=== PATIENT | female | born 1995 | race American Indian/Alaskan Native ===

== ENCOUNTER 2019-07-09 11:08 | Outpatient (CLI) | payer MEDICAID ==
[2019-07-09 12:14] LABS: Bacteria,Urine 4+ /HPF (Negative); Bilirubin,Urine NEG (Negative); Blood,Urine SM (Negative); Color,Urine Yellow (Yellow); Protein,Urine <15 mg/dL mg/dL (Negative); Urobilinogen,Urine < 2.0 mg/dL (<2.0)
[2019-07-09] MEDS ORDERED: TERBUTALINE 1 MG/1 ML INJ SUB-Q SCH (14:00)
[2019-07-09] MEDS: LACTATED RINGERS 1,000 ML IV SCH ×2 (14:29→14:30)
[2019-07-09] MEDS ORDERED: cefTRIAXone/NS 1 GM/50 ML 1 GM/50 ML BAG IV ONE (15:00)
[2019-07-09 15:55] VITALS: BP 131/86
== END 2019-07-09 16:07 | disposition home or self-care (01) ==
LOC: TRG 11:08
PROVIDERS: ATTEND Obstetrics & Gynecology
DX: O26.893 Other specified pregnancy related conditions, third trimester (principal); R10.9 Unspecified abdominal pain; O60.03 Preterm labor without delivery, third trimester; O16.3 Unspecified maternal hypertension, third trimester; Z3A.34 34 weeks gestation of pregnancy
CPT/HCPCS: 36415; 59025; 81001; 82731; 87086; 96361; 96365; J0696; J7120; 96360

== ENCOUNTER 2019-07-30 08:43 | Inpatient (IN) | payer MEDICAID ==
[2019-07-30 11:19] LABS: Basophils # (Auto) 0.1 K/mm3 (0.0-0.1); Basophils % (Auto) 0.5 % (0.0-1.8); Eosinophils % (Auto) 0.4 % (0.0-4.3); Hematocrit 34.7 % (30.3-42.9); Lymphocytes # (Auto) 1.9 K/mm3 (1.2-5.4); Lymphocytes % (Auto) 15.8 % (13.4-35.0); Mean Corpuscular HGB Conc 32 % (30-34); Mean Corpuscular Volume 74 fl (79-97); Monocytes % (Auto) 8.2 % (0.0-7.3); Platelet Count 344 K/mm3 (140-440); Red Blood Count 4.68 M/mm3 (3.65-5.03); Red Cell Distribution Width 16.4 % (13.2-15.2)
[2019-07-30] MEDS ORDERED: LIDOCAINE (2%) 20 MG/1 ML VIAL 20 ML MDV INFILTRATI NR (12:30)
[2019-07-30] MEDS ORDERED: AMPICILLIN/NS 2 GM/100 ML 2 GM/100 ML BAG IV SCH (12:30)
[2019-07-30] MEDS ORDERED: TERBUTALINE 1 MG/1 ML INJ IVP PRN (12:47)
[2019-07-30] MEDS ORDERED: miSOPROStol 25 MCG TAB ONE (12:50)
[2019-07-30] MEDS ORDERED: LACTATED RINGERS 1,000 ML IV SCH (13:00)
[2019-07-30] MEDS ORDERED: OXYTOCIN 20 UNIT/1000ML DRIP 20 UNITS/1,000 ML BAG IV SCH (13:00)
[2019-07-30] MEDS ORDERED: ePHEDrine SULFATE 50 MG/1 ML INJ IV PRN (13:00)
[2019-07-30] MEDS ORDERED: ONDANSETRON 4 MG/2 ML INJ IV PRN (13:00)
[2019-07-30] MEDS ORDERED: MINERAL OIL 30 ML ORAL LIQD PO PRN (13:00)
[2019-07-30] MEDS ORDERED: BUTORPHANOL 2 MG/1 ML INJ IV PRN (13:00)
[2019-07-30] MEDS ORDERED: fentaNYL 100 MCG/2 ML INJ IV PRN (13:00)
[2019-07-30] MEDS ORDERED: TERBUTALINE 1 MG/1 ML INJ SUB-Q PRN (13:00)
[2019-07-30] MEDS ORDERED: miSOPROStol 25 MCG TAB VG ONE (13:00)
[2019-07-30] MEDS ORDERED: OXYTOCIN DRIP 30 UNITS/500 ML BAG IV SCH (13:00)
--- NOTE | 2019-07-30 13:47 | History and Physical Report ---
History of Present Illness Date of examination: 07/30/19 Date of admission: 07/30/19 08:43 Chief complaint: scheduled induction of labor History of present illness: Pt is a 23 year old -[place] female JOZEF 08/20/19 at 37w0d who presents for induction of labor recommended by MFM secondary to chronic hypertension and IUGR. She reports good movement and denies vaginal bleeding or leakage of fluid. She has had care at [facility] since 11 wks complicated by chronic hypertension, IUGR, trichomonas treated with negative test of cure and obesity. She is GBS positive. Past History Past Medical History: hypertension (on labetalol 100 mg BID ) [employer] History: trichomonas (treated with negative test of cure) Family/Genetic History: hypertension Social history: no significant social history - Obstetrical History Expected Date of Delivery: 08/20/19 Actual Gestation: 37 Week(s) 0 Day(s) : 2 Para: 0 Hx # Term Pregnancies: 0 Number of Pregnancies: 0 Spontaneous Abortions: 0 Induced : 1 Number of Living Children: 0 Medications and Allergies Allergies Allergy/AdvReac Type Severity Reaction Status Date / Time No Known Allergies Allergy Unverified 07/09/19 11:53 Home Medications Medication Instructions Recorded Confirmed Last Taken Type cephALEXin [Keflex] 500 mg PO Q12HR #20 cap 07/21/19 Unknown Rx Active Meds: Active Medications Butorphanol Tartrate (Stadol) 2 mg IV Q2H PRN PRN Reason: Pain , Severe (7-10) Ephedrine Sulfate (Ephedrine Sulfate) 10 mg IV Q2M PRN PRN Reason: Hypotension Fentanyl (Sublimaze) 100 mcg IV Q2H PRN PRN Reason: Labor Pain Oxytocin/Sodium Chloride (Pitocin/Ns 20 Unit/1000ml Drip) 20 units in 1,000 mls @ 125 mls/hr IV DIRECT AMANDEEP Oxytocin/Sodium Chloride (Pitocin/Ns 30 Unit/500ml) 30 units in 500 mls @ 4 mls/hr IV TITR AMANDEEP; Protocol Lactated Ringer's (Lactated Ringers) 1,000 mls @ 125 mls/hr IV DIRECT AMANDEEP Last Admin: 07/30/19 12:53 Dose: 125 mls/hr Documented by: Ampicillin Sodium (Ampicillin/Ns 2 Gm/100 Ml) 2 gm in 100 mls @ 100 mls/hr IV ONCE AMANDEEP; Protocol Stop: 07/30/19 16:00 Ampicillin Sodium (Ampicillin/Ns 1 Gm/50 Ml) 1 gm in 50 mls @ 100 mls/hr IV Q4HR AMANDEEP; Protocol Lidocaine (Xylocaine 2%) 20 ml INFILTRATI ONCE NR Stop: 07/31/19 12:29 Mineral Oil (Mineral Oil) 30 ml PO QHS PRN PRN Reason: Constipation Ondansetron HCl (Zofran) 4 mg IV Q8H PRN PRN Reason: Nausea And Vomiting Terbutaline Sulfate (Brethine) 0.25 mg SUB-Q ONCE PRN PRN Reason: Hyperstimulation/Hypertonicity Terbutaline Sulfate (Brethine) 0.25 mg IVP ONCE PRN PRN Reason: Hyperstimulation/Hypertonicity Review of Systems All systems: negative - Vital Signs Vital signs: Vital Signs Temp Resp 98 F 18 07/30/19 09:22 07/30/19 09:22 Temp Pulse Resp BP Pulse Ox 98.3 F 94 H 18 139/91 100 07/30/19 13:21 07/30/19 13:46 07/30/19 13:21 07/30/19 13:41 07/30/19 13:46 - Physical Exam Breasts: Positive: deferred Abdomen: Positive: soft (gravid, obese) Genitourinary (Female): Positive: normal external genitalia Uterus: Positive: enlarged (gravid ) - Obstetrical FHR: auscultation normal Cervical Dilatation: 0.5 (per RN ) Results Result Diagrams: 07/30/19 09:50 Abnormal lab results 07/30/19 Range/Units 09:50 WBC 12.3 H (4.5-11.0) K/mm3 MCV 74 L (79-97) fl MCH 24 L (28-32) pg RDW 16.4 H (13.2-15.2) % [place] % (Auto) 8.2 H (0.0-7.3) % [place] # 1.0 H (0.0-0.8) K/mm3 Seg Neutrophils % 75.1 H (40.0-70.0) % Seg Neutrophils # 9.2 H (1.8-7.7) K/mm3 All other labs normal. Assessment and Plan A: IUP at 37w0d Chronic Hypertension on Labetalol 100 mg BID IUGR Trichomonas with negative test of cure Obesity GBS Positive Unfavorable Cervix P: Admit to labor and delivery Cervical ripening with misoprostol Routine intrapartum management
[2019-07-30] MEDS: AMPICILLIN/NS 1 GM/50 ML 1 GM/50 ML BAG IV SCH ×2 (18:17→22:16)
[2019-07-30] MEDS ORDERED: miSOPROStol 200 MCG TAB ONE (21:43)
[2019-07-30] MEDS ORDERED: DEXMEDETOMIDINE 200 MCG/2 ML VIAL IV ONE (22:14)
[2019-07-30] MEDS ORDERED: fentaNYL-BUPIV 2 MCG/ML-0.125% 200 MCG/100 ML BAG EPIDURAL ONE ×2 (23:01→23:59)
--- NOTE | 2019-07-31 00:44 | Anesthesia Consultation ---
Anesthesia Consult and Med Hx Date of service: 07/31/19 - Airway Anesthetic Teeth Evaluation: Good ROM Head & Neck: Adequate Mental/Hyoid Distance: Adequate Mallampati Class: Class II Intubation Access Assessment: Good - Pulmonary Exam CTA: Yes - Cardiac Exam Cardiac Exam: RRR - Pre-Operative Health Status ASA Pre-Surgery Classification: ASA2, Emergency Proposed Anesthetic Plan: Epidural - Pulmonary Hx Asthma: No Hx Pneumonia: No - Cardiovascular System Hx Hypertension: Yes (July 2018) - Central Nervous System Hx Seizures: No Hx Psychiatric Problems: No - Endocrine Hx Renal Disease: No Hx End Stage Renal Disease: No Hx Hypothyroidism: No Hx Hyperthyroidism: No - Hematic Hx Anemia: No Hx Sickle Cell Disease: No - Other Systems Hx Alcohol Use: No
--- NOTE | 2019-07-31 00:45 | Progress Note ---
Labor Epidural - Labor Epidural Start Time: 22:51 Stop Time: 22:55 Performed by:: IMER WHALEY Procedure: Patient is requesting a laboring epidural for laboring pain. Patient IDed, H&P reviewed, all questions and concerns were answered, and consent was signed. Timeout was performed at bedside. Patient in sitting position. Sterile prep and drape was performed. 3 ml of 1% lidocaine skin wheal at L 3- L 4. 18-gauge Touhy epidural needle was advanced to loss of resistance with air technique. Negative CSF negative blood. Epidural catheter advanced to 15 centimeters. Negative aspiration negative test dose. Sterile dressing applied. Patient tolerated procedure.
[2019-07-31] MEDS ORDERED: ePHEDrine SULFATE 50 MG/1 ML INJ IV PRN (00:46)
[2019-07-31] MEDS ORDERED: NALOXONE 2 MG/2 ML INJ IV PRN (00:46)
--- NOTE | 2019-07-31 00:50 | Event Note ---
Date: 07/31/19 Pt comfortable with epidural. Category II tracing. SVE: /+2. Pt unable to push well with epidural. Pause epidural. Increase pitocin. Closely monitor maternal and status.
[2019-07-31] MEDS ORDERED: fentaNYL-BUPIV 2 MCG/ML-0.125% 200 MCG/100 ML BAG EPIDURAL SCH (01:00)
--- NOTE | 2019-07-31 01:36 | Procedure Note ---
OB Delivery Note - Delivery Date of Delivery: 07/31/19 Surgeon: CATHY GONZALEZ Estimated blood loss: 300cc - Vaginal Delivery presentation: vertex Delivery position: OA Intrapartum events: PROM->1hr before delivery Delivery induction: misoprostol Delivery augmentation: pitocin Delivery monitor: external FHT, external uterine Route of delivery: Delivery placenta: spontaneous Episiotomy: none Delivery laceration: other (Bilateral periurethral, hemostatic ) Anesthesia: epidural - Infant A at 1 minute: 8 at 5 minutes: 9 Infant Gender: Male (2368g (5lb 3.5 oz) @ 0122 am)
[2019-07-31] MEDS ORDERED: ACETAMINOPHEN 325 MG TAB PO PRN (07:30)
[2019-07-31] MEDS ORDERED: PROMETHAZINE 25 MG RECT SUPP PR PRN (07:30)
[2019-07-31] MEDS ORDERED: WITCH HAZEL/ GLYCERIN PAD TP PRN (07:30)
[2019-07-31] MEDS ORDERED: BENZOCAINE/MENTHOL 20/0.5% TOP SPRAY 56 GM TP PRN (07:30)
[2019-07-31] MEDS ORDERED: diphenhydrAMINE 25 MG CAP PO PRN (07:30)
[2019-07-31] MEDS ORDERED: LANOLIN/ZINC/DIMETHICONE (LANSINOH) 7 GM TP PRN ×2 (07:30→08:00)
[2019-07-31] MEDS ORDERED: HYDROcodone/ACETAMINOPHEN 5-325 MG TAB PO PRN (08:00)
[2019-07-31] MEDS ORDERED: ONDANSETRON 4 MG/2 ML INJ IV PRN (08:00)
[2019-07-31] MEDS ORDERED: PROMETHAZINE 25 MG TAB PO PRN (08:00)
[2019-07-31] MEDS: FERROUS SULFATE 325 MG TAB PO SCH ×2 (09:30→21:18)
[2019-07-31] MEDS: IBUPROFEN 600 MG TAB PO SCH ×3 (09:30→23:19)
--- NOTE | 2019-07-31 10:44 | Progress Note ---
Assessment and Plan A: DOD s/p Chronic hypertension, previously on Labetalol 100mg BID. Concern for preeclampsia with severe features. Received Mag sulfate x24 hour 11 days ago. P: Closely monitor clinical status Pree labs Restart Labetalol 100mg PO BID Charlene Quinonez MD aware of patient Subjective - Subjective Date of service: 07/31/19 Principal diagnosis: s/p , chronic HTN Interval history: DOD , chronic HTN. Pt has had 5 severe range BP since admission. Patient reports: appetite normal, voiding normally, pain well controlled, ambulating normally, other (denies headache, scotomata) : doing well, nursing well Objective - Vital Signs Latest vital signs: Vital Signs Temp Pulse Resp BP BP Pulse Ox 07/31/19 08:05 97.9 F 71 20 149/90 07/31/19 05:00 98.7 F 87 18 140/98 98 07/31/19 03:23 98.6 F 07/31/19 02:22 93 H 141/78 07/31/19 02:07 100 H 141/82 07/31/19 01:52 102 H 143/77 07/31/19 01:39 108 H 99 07/31/19 01:37 106 H 142/78 07/31/19 01:34 97 H 98 07/31/19 01:29 105 H 99 07/31/19 01:24 129 H 99 07/31/19 01:19 111 H 100 07/31/19 01:14 90 100 07/31/19 01:09 94 H 100 07/31/19 01:07 91 H 148/83 07/31/19 01:04 90 100 07/31/19 00:59 92 H 100 07/31/19 00:54 85 100 07/31/19 00:49 98 H 100 07/31/19 00:44 82 100 07/31/19 00:39 88 100 07/31/19 00:37 86 150/82 07/31/19 00:34 88 100 07/31/19 00:29 110 H 100 07/31/19 00:24 100 H 100 07/31/19 00:19 89 97 07/31/19 00:14 81 97 07/31/19 00:09 93 H 18 138/85 97 07/31/19 00:04 81 98 07/30/19 23:59 87 100 07/30/19 23:54 92 H 100 07/30/19 23:49 107 H 76 L 07/30/19 23:44 95 H 100 07/30/19 23:39 90 98 07/30/19 23:37 90 138/87 07/30/19 23:34 93 H 98 07/30/19 23:29 89 97 07/30/19 23:24 89 97 07/30/19 23:19 95 H 98 07/30/19 23:14 98.7 F 94 H 97 07/30/19 23:09 102 H 97 07/30/19 23:07 106 H 137/88 07/30/19 23:04 101 H 98 07/30/19 22:59 94 H 97 07/30/19 22:54 92 H 98 07/30/19 22:49 94 H 97 07/30/19 22:44 109 H 97 07/30/19 22:42 106 H 153/90 07/30/19 22:39 107 H 97 07/30/19 22:37 101 H 148/91 07/30/19 22:34 97 H 97 07/30/19 22:29 98 H 98 07/30/19 22:13 162/100 07/30/19 22:11 95 H 138/95 07/30/19 22:05 22 07/30/19 21:41 113 H 162/100 07/30/19 21:08 98.7 F 07/30/19 20:41 94 H 160/91 07/30/19 20:11 88 147/93 07/30/19 19:41 99 H 161/98 07/30/19 19:34 20 07/30/19 19:29 117 H 100 07/30/19 19:24 109 H 100 07/30/19 19:19 105 H 99 07/30/19 19:14 122 H 100 07/30/19 19:11 117 H 139/91 07/30/19 19:09 115 H 99 07/30/19 19:04 104 H 99 07/30/19 18:59 111 H 98 07/30/19 18:54 101 H 98 07/30/19 18:49 106 H 99 07/30/19 18:44 98 H 99 07/30/19 18:42 107 H 149/91 07/30/19 18:39 113 H 99 20 18:34 113 H 98 07/30/19 18:29 107 H 98 07/30/19 18:24 104 H 98 07/30/19 18:23 96 H 136/89 07/30/19 18:19 100 H 99 07/30/19 17:29 93 H 98 07/30/19 17:24 94 H 98 07/30/19 17:19 99 H 99 07/30/19 17:14 90 99 07/30/19 17:12 93 H 142/81 07/30/19 17:09 100 H 97 07/30/19 17:04 88 98 07/30/19 17:01 99.5 F 18 07/30/19 16:59 95 H 97 07/30/19 16:54 90 98 07/30/19 16:49 92 H 97 07/30/19 16:46 96 H 145/95 07/30/19 16:44 97 H 98 07/30/19 16:41 93 H 150/108 07/30/19 16:39 103 H 93 07/30/19 16:38 59 L 85 07/30/19 16:29 98 H 97 07/30/19 16:24 100 H 97 07/30/19 16:19 98 H 97 07/30/19 16:14 107 H 96 07/30/19 16:11 96 H 139/99 07/30/19 16:09 97 H 97 07/30/19 16:04 101 H 99 07/30/19 15:59 91 H 98 07/30/19 15:54 102 H 98 07/30/19 15:49 102 H 98 07/30/19 15:44 93 H 99 07/30/19 15:42 99 H 133/94 07/30/19 15:39 107 H 99 07/30/19 15:34 108 H 98 07/30/19 15:29 99 H 98 07/30/19 15:24 106 H 98 07/30/19 15:19 106 H 97 07/30/19 15:15 106 H 135/85 07/30/19 15:14 104 H 99 07/30/19 15:09 103 H 98 07/30/19 15:01 101 H 100 07/30/19 14:56 99 H 100 07/30/19 14:51 104 H 99 07/30/19 14:46 99 H 100 07/30/19 14:42 95 H 139/95 07/30/19 14:41 100 H 99 07/30/19 14:36 100 H 99 07/30/19 14:31 95 H 100 07/30/19 14:26 95 H 100 07/30/19 14:23 93 H 142/91 07/30/19 14:22 93 H 93 07/30/19 14:21 91 H 100 07/30/19 14:16 92 H 100 07/30/19 14:12 102 H 165/100 07/30/19 14:11 108 H 99 07/30/19 14:06 94 H 99 07/30/19 14:01 99 H 99 07/30/19 13:56 98 H 99 07/30/19 13:51 97 H 99 07/30/19 13:46 94 H 100 07/30/19 13:41 97 H 139/91 100 07/30/19 13:36 93 H 98 07/30/19 13:31 97 H 97 07/30/19 13:26 103 H 97 07/30/19 13:21 98.3 F 102 H 18 97 07/30/19 13:11 100 H 143/98 07/30/19 11:04 93 H 131/86 Intake and Output 07/30/19 07/31/19 07/31/19 23:59 07:59 15:59 Intake Total 50 120 Output Total 300 800 400 Balance -250 -800 -280 Intake: IV 50 AMPICILLIN/NS 1 GM/50 ML 50 1 gm In 50 ml @ 100 mls/ hr IV Q4HR [facility] Rx#: [id number] Oral 120 Output: Urine 300 800 400 Uretheral ([place]) 300 Void 800 400 Other: Total, Intake Amount 120 Total, Output Amount 800 400 Estimated Blood Loss 300 - Exam Lungs: Present: Normal air movement - Labs Labs: Abnormal lab results 07/30/19 Range/Units 09:50 WBC 12.3 H (4.5-11.0) K/mm3 MCV 74 L (79-97) fl MCH 24 L (28-32) pg RDW 16.4 H (13.2-15.2) % [place] % (Auto) 8.2 H (0.0-7.3) % [place] # 1.0 H (0.0-0.8) K/mm3 Seg Neutrophils % 75.1 H (40.0-70.0) % Seg Neutrophils # 9.2 H (1.8-7.7) K/mm3
[2019-07-31 12:06] LABS: Hematocrit 29.7 % (30.3-42.9); Hemoglobin 9.4 gm/dl (10.1-14.3)
[2019-07-31 12:29] LABS: Alanine Aminotransferase 11 units/L (7-56); Albumin 2.5 g/dL (3.9-5); BUN/Creatinine Ratio 7; Blood Urea Nitrogen 5 mg/dL (7-17); Calcium 9.4 mg/dL (8.4-10.2); Hemolysis Index 5; Uric Acid 6.3 mg/dL (3.5-7.6)
--- NOTE | 2019-07-31 13:16 | Post Anesthesia Evaluation ---
- Post Anesthesia Evaluation Patient Participated: Yes Airway Patent: Yes Stable Respiratory Function: Yes Nausea/Vomiting: No Temp > 96.8F: Yes Pain Manageable: Yes Adequeate Hydration: Yes Anesthesia Complications: No Block Receding Appropriately: Yes Patient on Ventilator: No
[2019-07-31] MEDS ORDERED: MAGNESIUM HYDROXIDE (MOM) ORAL LIQD UDC PO PRN (22:00)
[2019-08-01] MEDS: IBUPROFEN 600 MG TAB PO SCH ×4 (05:52→23:39)
[2019-08-01] MEDS ORDERED: TETANUS,DIPH,PERTUSS(ACELL) VACCINE 0.5 ML SYRINGE IM ONE (06:00)
[2019-08-01] MEDS: FERROUS SULFATE 325 MG TAB PO SCH ×2 (09:15→21:56)
[2019-08-01] MEDS ORDERED: MEASLES, MUMPS & RUBELLA 12,500 UNIT/0.5 ML VACCINE SUB-Q ONE (11:00)
--- NOTE | 2019-08-01 11:23 | Progress Note ---
Assessment and Plan A: PPD1 s/p Chronic hypertension, on Labetalol 100mg BID. BP stabilizing S/p Mag sulfate x24 hour 12 days ago Acute anemia due to blood loss P: Closely monitor clinical status Continue Labetalol 100mg BID Ferrous sulfate supplementation Charlene Quinonez MD aware of patient Subjective - Subjective Date of service: 08/01/19 Principal diagnosis: s/p , chronic HTN Interval history: PPD1 , chronic HTN. BP trend decreasing. Patient reports: appetite normal, voiding normally, pain well controlled, ambulating normally [place]: doing well, nursing well Objective - Vital Signs Latest vital signs: Vital Signs Temp Pulse Resp BP BP Pulse Ox 08/01/19 08:41 97.7 F 77 16 136/96 94 08/01/19 05:10 97.8 F 79 18 128/75 99 08/01/19 00:49 97.6 F 68 20 122/70 99 07/31/19 23:19 18 07/31/19 21:14 140/88 07/31/19 21:12 78 140/88 07/31/19 20:09 18 07/31/19 16:10 97.9 F 79 20 133/86 Intake and Output 07/31/19 08/01/19 08/01/19 23:59 07:59 15:59 Intake Total 560 240 Output Total 600 Balance -40 240 Intake: Oral 320 Intake, Free Water 240 240 Output: Urine 600 Void 600 Other: Total, Intake Amount 320 Total, Output Amount 600 # Voids Void 240 3 - Exam Breasts: Present: normal Lungs: Present: Normal air movement Abdomen: Present: soft. Absent: distention Uterus: Present: firm, fundal height below umbilicus. Absent: bogginess Extremities: Present: normal - Labs Labs: Abnormal lab results 07/31/19 07/31/19 Range/Units 11:40 11:40 Hgb 9.4 L (10.1-14.3) gm/dl Hct 29.7 L (30.3-42.9) % Chloride 107.7 H (98-107) mmol/L Carbon Dioxide 19 L (22-30) mmol/L BUN 5 L (7-17) mg/dL Glucose 112 H (65-100) mg/dL Alkaline Phosphatase 234 H (35-129) units/L Lactate Dehydrogenase 257 H (91-180) units/L Total Protein 5.9 L (6.3-8.2) g/dL Albumin 2.5 L (3.9-5) g/dL
[2019-08-01 19:26] LABS: Creatinine,Urine 68.9 mg/dL (0.1-20.0)
[2019-08-01 19:27] LABS: Protein/Creatinine Ratio,Urine 0.73
[2019-08-02] MEDS: IBUPROFEN 600 MG TAB PO SCH (05:11)
[2019-08-02] MEDS: FERROUS SULFATE 325 MG TAB PO SCH (10:36)
--- NOTE | 2019-08-02 12:18 | Progress Note ---
Assessment and Plan PPD2 s/p Chronic hypertension, on Labetalol 100mg BID. BP stabilizing S/p Mag sulfate x24 hour 12 days ago Acute anemia due to blood loss discharge home Subjective - Subjective Date of service: 08/02/19 Principal diagnosis: s/p , chronic HTN Patient reports: appetite normal, voiding normally, pain well controlled, flatus, ambulating normally : doing well Objective - Vital Signs Latest vital signs: Vital Signs Temp Pulse Resp BP BP Pulse Ox 08/02/19 08:15 97.7 F 70 16 124/78 100 08/02/19 00:33 97.7 F 76 20 137/91 96 08/01/19 21:58 73 139/89 08/01/19 17:30 98.0 F 75 14 131/78 100 Intake and Output 08/01/19 08/02/19 08/02/19 23:59 07:59 15:59 Intake Total 240 480 240 Balance 240 480 240 Intake: Oral 240 480 240 Other: Total, Intake Amount 240 240 240 # Voids Void 1 1 1 - Exam Breasts: Present: normal Cardiovascular: Present: Regular rate, Normal S1 Lungs: Present: Clear to auscultation, Normal air movement Abdomen: Present: normal appearance, soft, normal bowel sounds. Absent: distention, tenderness, guarding Vulva: both: normal Uterus: Present: normal, firm, fundal height below umbilicus. Absent: bogginess, tenderness Extremities: Present: normal Deep Tendon Reflex Grade: Normal +2 Incision: Present: normal - Labs Labs: Abnormal lab results 07/31/19 Range/Units Unknown Urine Creatinine 68.9 H (0.1-20.0) mg/dL Urine Total Protein 50 H (5-11.8) mg/dL
--- NOTE | 2019-08-02 12:18 | Discharge Summary ---
Providers - Providers Date of Admission: 07/30/19 08:43 Date of discharge: 08/02/19 Attending physician: CATHY GONZALEZ Primary care physician: CATHY GONZALEZ Hospitalization Delivery: Episiotomy: none Laceration: none Incision: normal, intact Other procedures: none complications: none Discharge diagnosis: IUP at term delivered baby: male Hospital course: routine care. chronic HTN on labetolol Condition at discharge: Good Disposition: DC-01 TO HOME OR SELFCARE Plan - Discharge Medications Prescriptions: labetaloL [Labetalol 100mg TAB] 100 mg PO BID #30 tablet Ibuprofen [Motrin] 600 mg PO Q8H PRN #30 tablet PRN Reason: Pain - Provider Discharge Summary Activity: routine, no sex for 6 weeks, no strenuous exercise Diet: routine Instructions: routine Additional instructions: [] Smoking cessation referral if applicable(refer to patient education folder for contact #) [] Refer to [facility]'s [facility] Booklet Call your doctor immediately for: * Fever > 100.5 * Heavy vaginal bleeding ( >1 pad per hour) * Severe persistent headache * Shortness of breath * Reddened, hot, painful area to leg or breast * Drainage or odor from incision. * Keep incision clean and dry at all times and follow doctor's instructions regarding bathing/showering - Follow up plan Follow up: CATHY GONZALEZ MD [Primary Care Provider] - 7 Days Forms: [facility] Discharge Summary
[2019-08-02 13:13] VITALS: BP 146/85
== END 2019-08-02 13:45 | disposition home or self-care (01) | DRG 775 ==
LOC: LD 08:43 → OB 07-31 05:48
PROVIDERS: ADMIT Obstetrics & Gynecology; ATTEND Obstetrics & Gynecology
PROC: 10E0XZZ Delivery of Products of Conception, External Approach (ICD-10-PCS; principal; 2019-07-31)
PROC: 3E0R3BZ Introduction of Anesthetic Agent into Spinal Canal, Percutaneous Approach (ICD-10-PCS; 2019-07-31)
PROC: 00HU33Z Insertion of Infusion Device into Spinal Canal, Percutaneous Approach (ICD-10-PCS; 2019-07-31)
PROC: 3E0P7VZ Introduction of Hormone into Female Reproductive, Via Natural or Artificial Opening (ICD-10-PCS; 2019-07-31)
PROC: 3E0234Z Introduction of Serum, Toxoid and Vaccine into Muscle, Percutaneous Approach (ICD-10-PCS; 2019-08-01)
PROC: 3E0134Z Introduction of Serum, Toxoid and Vaccine into Subcutaneous Tissue, Percutaneous Approach (ICD-10-PCS; 2019-08-01)
DX: O11.4 Pre-existing hypertension with pre-eclampsia, complicating childbirth (principal); O36.5930 Maternal care for other known or suspected poor fetal growth, third trimester, not applicable or unspecified; O99.214 Obesity complicating childbirth; E66.9 Obesity, unspecified; O99.824 Streptococcus B carrier state complicating childbirth; O42.02 Full-term premature rupture of membranes, onset of labor within 24 hours of rupture; O71.82 Other specified trauma to perineum and vulva; D62 Acute posthemorrhagic anemia; O90.81 Anemia of the puerperium; Z3A.37 37 weeks gestation of pregnancy; Z37.0 Single live birth; Z23 Encounter for immunization; Z82.49 Family history of ischemic heart disease and other diseases of the circulatory system
CPT/HCPCS: 36415; 80053; 82570; 83615; 84156; 84550; 85014; 85018; 85025; 86592; 86850; 86900; 86901; 88307; G0378; J0290; J0595; J2590; J3010; J3490; J7120

== ENCOUNTER 2021-01-05 11:30 | Outpatient (CLI) | payer MEDICAID ==
[2021-01-05 12:16] VITALS: BP 129/78
[2021-01-05] MEDS ORDERED: LACTATED RINGERS 500 ML IV ONE ×2 (12:24→14:33)
[2021-01-05 14:23] LABS: Bacteria,Urine 1+ /HPF (Negative); Bilirubin,Urine NEG (Negative); Blood,Urine NEG (Negative); Color,Urine Yellow (Yellow); Mucus,Urine 1+ /HPF
[2021-01-05] MEDS ORDERED: LIDOCAINE (1%) 10 MG/1 ML VIAL 20 ML MDV IM SCH (15:00)
== END 2021-01-05 15:38 | disposition home or self-care (01) ==
LOC: TRG 11:30 → APU 11:32 → TRG 15:38
PROVIDERS: ATTEND Obstetrics & Gynecology
DX: O26.892 Other specified pregnancy related conditions, second trimester (principal); Z3A.21 21 weeks gestation of pregnancy
CPT/HCPCS: 81001; 87086; 96372; J0696